=== PATIENT | male | born 1985 | race Hispanic/Latino ===

== ENCOUNTER 2016-10-29 14:16 | Emergency (ER) | payer SELFPAY ==
[2016-10-29 14:25] VITALS: BP 143/78; PULSE 93; RESP 20; TEMP 97.4; O2SAT 99
--- NOTE | 2016-10-29 15:03 | ED PDOC ---
HPI: Psych/Substance Abuse Time Seen by Provider: 10/29/16 14:44 Chief Complaint (Nursing): Substance Abuse History Per: Patient (was brought in by EMS with police (who has released him) after he was found in the middle of the street, passed out. Patient states that he is dehydrated and is the reason why he was on the floor. He used alcohol this morning. He is here with a friend who is willing to sign his discharge papers.) History/Exam Limitations: no limitations Past Medical History Reviewed: Historical Data, Nursing Documentation, Vital Signs Vital Signs: Last Vital Signs Temp 97.4 F L 10/29/16 14:23 Pulse 93 H 10/29/16 14:23 Resp 20 10/29/16 14:23 BP 143/78 10/29/16 14:23 Pulse Ox 99 10/29/16 14:23 - Medical History PMH: Anxiety, Depression, Fractures (facial fx) - Family History Family History: States: Unknown Family Hx - Immunization History Hx Tetanus Toxoid Vaccination: Yes Hx Influenza Vaccination: Yes Hx Pneumococcal Vaccination: No - Home Medications Home Medications: Ambulatory Orders Medication Instructions Recorded Gabapentin 10/23/16 Zoloft 10/23/16 oxyCODONE [oxyCODONE Immediate 5 mg PO 10/23/16 Release Tab] Divalproex [Depakote DR(*BID*)] 500 mg PO BID #60 ect 10/28/16 Gabapentin [Neurontin] 600 mg PO TID #90 tab 10/28/16 Saccharomyces Boulardi [Florastor] 250 mg PO Q12H #60 cap 10/28/16 Sertraline [Zoloft] 100 mg PO DAILY #30 tab 10/28/16 traZODone [Desyrel] 50 mg PO HS PRN #30 tab 10/28/16 - Allergies Allergies/Adverse Reactions: Allergies Allergy/AdvReac Type Severity Reaction Status Date / Time No Known Allergies Allergy Verified 10/23/16 17:51 Review of Systems ROS Statement: Except As Marked, All Systems Reviewed And Found Negative Physical Exam - Reviewed Nursing Documentation Reviewed: Yes Vital Signs Reviewed: Yes - Physical Exam Appears: Positive for: Well, Non-toxic, No Acute Distress Head Exam: Positive for: ATRAUMATIC, NORMAL INSPECTION, NORMOCEPHALIC Skin: Positive for: Normal Color, Warm, DRY Eye Exam: Positive for: Normal appearance, EOMI, PERRL, Other (eyes slightly glazed look. ) ENT: Positive for: Normal ENT Inspection Neck: Positive for: Normal, Painless ROM Cardiovascular/Chest: Positive for: Regular Rate, Rhythm Respiratory: Positive for: CNT, Normal Breath Sounds Gastrointestinal/Abdominal: Positive for: Normal Exam, Bowel Sounds, Soft Back: Positive for: Normal Inspection Extremity: Positive for: Normal ROM Neurologic/Psych: Positive for: Alert, motor rebuilder II-XII, Oriented, Motor/Sensory Deficits, Cerebellar Tests, Gait. Negative for: Facial Droop - ECG O2 Sat by Pulse Oximetry: 99 Medical Decision Making Medical Decision Making: patient's friend at bedside is willing to assume responsiblity for him. He presented an official ID that is copied and and scanned into the chart. Disposition - Clinical Impression Clinical Impression: Intoxication - Patient ED Disposition Is Patient to be Admitted: No Doctor Will See Patient In The: Office Counseled Patient/Family Regarding: Diagnosis, Need For Followup - Disposition Referrals: [facility] [Outside] [facility] [Outside] [facility] [Outside] Disposition: Routine/Home Disposition Time: 15:02 Condition: IMPROVED Instructions: Alcohol Intoxication (ED) - POA Present On Arrival: None
[2016-10-29 15:26] LABS: BASO % 0.5 % (0.0-2.0); EOS # 0.1 K/uL (0.0-0.7); HEMATOCRIT 43.4 % (35.0-51.0); LYMPH # 2.4 K/uL (1.0-4.3); LYMPH % 31.7 % (20.0-40.0); MEAN CELL VOLUME 87.4 fl (80.0-94.0); MEAN CORPUSCULAR HEMOGLOBIN 29.1 pg (27.0-31.0); MEAN CORPUSCULAR HGB CONC 33.3 g/dL (33.0-37.0); MEAN PLATELET VOLUME 7.6 fl (7.2-11.7); MONO # 0.5 K/uL (0.0-0.8); MONO % 6.3 % (0.0-10.0); NEUT # 4.6 K/uL (1.8-7.0); NEUT % 60.5 % (50.0-75.0); NRBC % 0.1 % (0.0-0.0); RED CELL DISTRIBUTION WIDTH 13.7 % (11.5-14.5); WHITE BLOOD COUNT 7.7 K/uL (4.8-10.8)
[2016-10-29 15:38] LABS: ALB/GLOB RATIO 1.2 (1.0-2.1); ALCOHOL SERUM 167 mg/dl (0-10); ALKALINE PHOSPHATASE 84 U/L (38-126); ALT/SGPT 28 U/L (21-72); AST/SGOT 28 U/L (17-59); BILIRUBIN,TOTAL 0.3 mg/dl (0.2-1.3); BLOOD UREA NITROGEN 16 mg/dl (9-20); CALCIUM 9.5 mg/dL (8.4-10.2); CARBON DIOXIDE 24 mmol/L (22-30); CHLORIDE 105 mmol/L (98-107); GFR AFRICAN-AMERICAN > 60; GLUCOSE,RANDOM 90 mg/dL (75-110); POTASSIUM 4.2 MMOL/L (3.6-5.0); SODIUM 149 mmol/l (132-148); TOTAL PROTEIN 8.3 G/DL (6.3-8.2)
== END 2016-10-29 15:20 | disposition short-term general hospital (02) ==
LOC: H.ER 14:16
DX: F10.129 Alcohol abuse with intoxication, unspecified (principal)
CPT/HCPCS: 80053; 82948; 85025; 99283; G0480